=== PATIENT | female | born 1945 | race Asian ===

== ENCOUNTER 2019-12-26 22:53 | Emergency (ER) | payer OTHER ==
[~2019-12-26] VITALS: Ht 165.1 cm; Wt 62.1 kg
[2019-12-26 23:52] LABS: PLATELET COUNT 326 K/uL (152-353)
[2019-12-27 00:22] LABS: POTASSIUM 3.3 mmol/L (3.6-5.2)
[2019-12-27 01:33] VITALS: BP 179/86; TEMP 98.9
[2019-12-27] MEDS ORDERED: LUBI24CA PO (02:52)
[2019-12-27] MEDS ORDERED: ASPIRIN CHLD81 MG PO (02:54)
[2019-12-27] MEDS ORDERED: BENA20TA2 PO (02:54)
[2019-12-27] MEDS ORDERED: FURO40TA93 PO (02:55)
[2019-12-27] MEDS ORDERED: GLIP10TA55 PO (02:56)
[2019-12-27] MEDS ORDERED: ALPR0.2566 PO (02:58)
[2019-12-27] MEDS ORDERED: VITAMIN D32000 UNIT PO (02:58)
[2019-12-27] MEDS ORDERED: DILT-XR120 MG PO (02:59)
[2019-12-27] MEDS ORDERED: LIPITOR10 MG PO (03:00)
== END 2019-12-27 01:34 | disposition other institution (70) ==
LOC: ED 22:53
PROVIDERS: Emergency Medicine Emergency Medical Services
DX: F41.8 Other specified anxiety disorders (principal); F32.89 Other specified depressive episodes; Z03.818 Encounter for observation for suspected exposure to other biological agents ruled out; Z04.6 Encounter for general psychiatric examination, requested by authority
CPT/HCPCS: 36415; 80053; 85027; 87635; 93005; 99283; U0002